=== PATIENT | male | born 1960 | race Caucasian/White ===

== ENCOUNTER → 2016-09-23 | Outpatient (CLI) | payer OTHER ==
[~2016-09-23] MED LIST: ATORVASTATIN CA40 MG PO; COREG25 M1 PO; LISINOPRIL20 MG PO; PRILOSEC20 MG PO; TRICOR145 MG PO
== END | disposition home or self-care (01) ==
LOC: AMB 07:59
DX: L72.0 Epidermal cyst (principal); I10 Essential (primary) hypertension; E78.5 Hyperlipidemia, unspecified
CPT/HCPCS: 88304